=== PATIENT | male | born 1950 | race Caucasian/White ===

== ENCOUNTER 2022-08-05 11:51 | Day surgery (SDC) | payer MEDICARE, OTHER ==
[2022-08-02 10:43] LABS: COVID AG,FIA SOURCE NASAL SWAB
[~2022-08-05] VITALS: Ht 182.9 cm; Wt 122.7 kg
[~2022-08-05 11:51] MED LIST: SODIUM CHLORIDE 0.9% 1,000 ML IV ONE; SODIUM CHLORIDE 0.9% 1,000 ML ONE
[2022-08-05] MEDS ORDERED: LIDOCAINE/PF 2% 5 ML VIAL IM ONE (12:00)
[2022-08-05] MEDS ORDERED: PROPOFOL 1% 20 ML VIAL IVP ONE (12:00)
== END 2022-08-05 15:30 | disposition home or self-care (01) ==
LOC: SURGERY 11:51
PROVIDERS: ATTEND Internal Medicine Gastroenterology
DX: K62.5 Hemorrhage of anus and rectum (principal); D12.8 Benign neoplasm of rectum; K63.5 Polyp of colon; K64.8 Other hemorrhoids; I10 Essential (primary) hypertension; M17.11 Unilateral primary osteoarthritis, right knee; M16.11 Unilateral primary osteoarthritis, right hip; K57.30 Diverticulosis of large intestine without perforation or abscess without bleeding; Z20.822 Contact with and (suspected) exposure to COVID-19; Z79.899 Other long term (current) drug therapy; J45.909 Unspecified asthma, uncomplicated; Z98.890 Other specified postprocedural states
CPT/HCPCS: 87426; 45380; C9803; C1769; J2704; J3490; J7030; 88305